=== PATIENT | female | born 1945 | race Caucasian/White ===

== ENCOUNTER 2022-12-05 12:24 | Inpatient (IN) | payer OTHER, MEDICAID ==
[~2022-12-05] VITALS: Ht 165.1 cm; Wt 80.7 kg
[2022-12-05] MEDS: METOPROLOL SUCCINATE 50 MG TAB.SR.24H (TOPROL XL) PO SCH (09:00)
[~2022-12-05 12:24] MED LIST: LOSARTAN POTASSIUM 50 MG TABLET (COZAAR) PO SCH
[2022-12-05 12:30] VITALS: BP_SYST 177; PULSE 100; RESP 16; TEMP 97.8; O2SAT 98
[2022-12-05] MEDS ORDERED: MORPHINE 4 MG INJ. 4 MG/ML VIAL IVP ONE ×2 (13:00→16:15)
[2022-12-05 13:54] LABS: BASOPHILS % (AUTO) 0.4 % (0.0-2.0); EOSINOPHILS # (AUTO) 0.1 K/uL (0.0-0.4); EOSINOPHILS % (AUTO) 1.2 % (0.0-4.0); HEMATOCRIT 39.7 % (36-48); HEMOGLOBIN 13.4 g/dL (12.0-16.0); LYMPHOCYTES # (AUTO) 1.6 K/uL (1.0-5.5); LYMPHOCYTES % (AUTO) 27.6 % (20.5-51.5); MEAN CORPUSCULAR HEMOGLOBIN 32 pg (27-31); MEAN CORPUSCULAR HGB CONC 34 % (32-36); MEAN CORPUSCULAR VOLUME 95 fL (79.0-98.0); MONOCYTES # (AUTO) 0.5 K/uL (0.0-1.0); NEUTROPHILS # (AUTO) 3.7 K/uL (1.8-7.7); NEUTROPHILS % (AUTO) 62.8 % (40.0-70.0); PLATELET COUNT (AUTO) 175 K/uL (130-430); RED CELL DISTRIBUTION WIDTH 14.7 % (9.0-15.0); WHITE BLOOD COUNT (AUTO) 5.8 K/uL (4.8-10.8)
[2022-12-05 13:58] LABS: ANION GAP 9 (5-15); CALCIUM 8.9 mg/dL (8.4-11.0); CHLORIDE 104 mmol/L (98-107); CREATININE 0.95 mg/dL (0.55-1.30); GLUCOSE 103 mg/dL (70-99); UREA NITROGEN, BLOOD 12 mg/dL (8-21)
[2022-12-05 14:01] LABS: INR 1.1 (0.8-1.2)
[2022-12-05 14:04] LABS: ALANINE AMINOTRANSFERASE 16 U/L (12-78); ALBUMIN 3.5 g/dL (3.4-4.8); ASPARTATE AMINOTRANSFERASE 18 U/L (10-37); TOTAL BILIRUBIN 0.5 mg/dL (0.0-1.0)
[2022-12-05] MEDS ORDERED: ONDANSETRON HCL 4 MG/2 ML VIAL IVP PRN (14:45)
[2022-12-05] MEDS ORDERED: ACETAMINOPHEN 325 MG TABLET PO PRN ×2 (14:45→15:15)
[2022-12-05] MEDS ORDERED: hydrALAZINE HCL 20 MG/ML VIAL IVP PRN (14:45)
[2022-12-05] MEDS: NACL 0.9% 1,000 ML IV SCH (15:36)
[2022-12-05] MEDS ORDERED: OLME20TA23 PO (17:15)
[2022-12-05] MEDS ORDERED: TELM80TA8 PO (17:15)
[2022-12-05] MEDS ORDERED: METO-542 PO (17:15)
[2022-12-05 18:22] VITALS: BP_SYST 180; PULSE 85; RESP 12; TEMP 97.7
[2022-12-05] MEDS: MORPHINE 4 MG INJ. 4 MG/ML VIAL IVP PRN (18:24)
[2022-12-05 18:43] VITALS: O2SAT 97
[2022-12-05 19:00] VITALS: BP_SYST 134; PULSE 86; RESP 18; TEMP 97.7; O2SAT 98
[2022-12-05] MEDS ORDERED: LORazepam 2 MG/ML VIAL IM PRN (19:45)
[2022-12-05] MEDS ORDERED: LORazepam 2 MG/ML VIAL IVP PRN (20:15)
[2022-12-06 00:10] VITALS: BP_SYST 165; PULSE 98; RESP 21; TEMP 98.4; O2SAT 100
[2022-12-06] MEDS: NACL 0.9% 1,000 ML IV SCH ×3 (00:45→21:09)
[2022-12-06 08:00] VITALS: O2SAT 98
[2022-12-06 08:13] LABS: BASOPHILS % (AUTO) 0.5 % (0.0-2.0); EOSINOPHILS # (AUTO) 0.1 K/uL (0.0-0.4); EOSINOPHILS % (AUTO) 1.7 % (0.0-4.0); HEMATOCRIT 34.6 % (36-48); HEMOGLOBIN 11.5 g/dL (12.0-16.0); LYMPHOCYTES # (AUTO) 0.8 K/uL (1.0-5.5); LYMPHOCYTES % (AUTO) 15.4 % (20.5-51.5); MEAN CORPUSCULAR HEMOGLOBIN 31 pg (27-31); MEAN CORPUSCULAR HGB CONC 33 % (32-36); MEAN CORPUSCULAR VOLUME 95 fL (79.0-98.0); MONOCYTES # (AUTO) 0.4 K/uL (0.0-1.0); MONOCYTES % (AUTO) 7.9 % (1.7-9.3); NEUTROPHILS # (AUTO) 3.8 K/uL (1.8-7.7); NEUTROPHILS % (AUTO) 74.5 % (40.0-70.0); PLATELET COUNT (AUTO) 144 K/uL (130-430); RED BLOOD CELL COUNT(AUTO) 3.65 MIL/uL (4.2-6.2); RED CELL DISTRIBUTION WIDTH 14.3 % (9.0-15.0); WHITE BLOOD COUNT (AUTO) 5.1 K/uL (4.8-10.8)
[2022-12-06 08:43] LABS: ALANINE AMINOTRANSFERASE 15 U/L (12-78); ALBUMIN 2.6 g/dL (3.4-4.8); ANION GAP 7 (5-15); ASPARTATE AMINOTRANSFERASE 19 U/L (10-37); CALCIUM 7.8 mg/dL (8.4-11.0); CHLORIDE 107 mmol/L (98-107); GLUCOSE 102 mg/dL (70-99); PHOSPHORUS 3.2 mg/dL (2.7-4.5); TOTAL BILIRUBIN 0.6 mg/dL (0.0-1.0); UREA NITROGEN, BLOOD 9 mg/dL (8-21)
[2022-12-06] MEDS: METOPROLOL SUCCINATE 50 MG TAB.SR.24H (TOPROL XL) PO SCH (09:00)
[2022-12-06] MEDS: MORPHINE 4 MG INJ. 4 MG/ML VIAL IVP PRN (09:15)
[2022-12-06] MEDS ORDERED: METOCLOPRAMIDE HCL 10 MG/2 ML VIAL ONE (09:25)
[2022-12-06] MEDS ORDERED: BUPIVACAINE /PF 0.25% 30 ML VIAL INJ ONE (09:25)
[2022-12-06] MEDS ORDERED: ROCURONIUM BROMIDE 10 MG/ML (ZEMURON) ONE (09:25)
[2022-12-06] MEDS ORDERED: HYDROmorphone 2 MG/ML VIAL ONE (09:25)
[2022-12-06] MEDS ORDERED: PROPOFOL 200MG/ 20ML VIAL (DIPRIVAN) IV ONE (09:25)
[2022-12-06] MEDS ORDERED: NEOSTIGMINE METHYLSULFATE 1 MG/ML, 10 ML VIAL ONE (09:25)
[2022-12-06] MEDS ORDERED: LR 1,000 ML IV.SOLN IV ONE (09:25)
[2022-12-06] MEDS ORDERED: NS IRRIG SOLN 1000 ML IR ONE (09:25)
[2022-12-06] MEDS ORDERED: TRANEXAMIC ACID 1,000 MG/10 ML VIAL ONE (09:25)
[2022-12-06] MEDS ORDERED: SEVOFLURANE 15 MIN GAS INH ONE (09:25)
[2022-12-06] MEDS ORDERED: HYDROmorphone 1 MG/ML INJ. CARTRIDGE IVP PRN (11:00)
[2022-12-06] MEDS ORDERED: NALOXONE HCL 0.4 MG/ML AMP (NARCAN) IVP PRN ×2 (11:00→23:45)
[2022-12-06] MEDS ORDERED: ONDANSETRON HCL 4 MG/2 ML VIAL IVP PRN (11:00)
[2022-12-06] MEDS: HYDROmorphone 1 MG/ML INJ. CARTRIDGE ONE ×2 (11:43→11:50)
[2022-12-06] MEDS ORDERED: MIDAZOLAM HCL 2 MG/2 ML VIAL (VERSED) ONE (12:07)
[2022-12-06] MEDS ORDERED: MIDAZOLAM HCL 2 MG/2 ML VIAL (VERSED) IVP ONE (12:15)
[2022-12-06 13:00] VITALS: BP_SYST 133; PULSE 79; RESP 16; TEMP 97.2; O2SAT 100
[2022-12-06 16:46] LABS: BILIRUBIN,URINE NEGATIVE (NEGATIVE); CLARITY/URINE CLEAR (CLEAR); COLOR,URINE YELLOW (YELLOW); GLUCOSE,URINE NEGATIVE (NEGATIVE); KETONES,URINE NEGATIVE (NEGATIVE); LEUKOCYTE ESTERASE ,URINE NEGATIVE (NEGATIVE); NITRITE, URINE NEGATIVE (NEGATIVE); PH,URINE 5.5 (5.0-8.0); PROTEIN URINE NEGATIVE (NEGATIVE); UROBILINOGEN,URINE 0.2 (0.2-1.0)
[2022-12-06 17:15] LABS: BLOOD, URINE TRACE (NEGATIVE)
[2022-12-06 17:27] LABS: BACTERIA,URINE RARE /HPF (None Seen); MUCUS,URINE None Seen /LPF (None Seen); RBC,URINE 0-3 /HPF (0-3); WBC,URINE 0-3 /HPF (0-3)
[2022-12-06 20:00] VITALS: BP_SYST 151; PULSE 83; RESP 18; TEMP 98.1; O2SAT 97; O2SAT 99
[2022-12-06] MEDS: ceFAZolin SODIUM 2 GM in D5W 100 ML IV SCH (21:10)
[2022-12-06] MEDS ORDERED: MORPHINE 2 MG/ML INJ. SYRINGE IVP ONE (23:45)
[2022-12-06] MEDS ORDERED: HALOPERIDOL LACTATE 5 MG/ML VIAL IM ONE (23:45)
[2022-12-07] VITALS (9 sets, daily range): BP systolic 112–188; PULSE 52–88; RESP 16–18; TEMP 96.7–98.2; O2SAT 95–100
[2022-12-07] MEDS: ceFAZolin SODIUM 2 GM in D5W 100 ML IV SCH ×3 (06:00→20:55)
[2022-12-07] MEDS: NACL 0.9% 1,000 ML IV SCH ×2 (06:45→15:51)
[2022-12-07] MEDS: METOPROLOL SUCCINATE 50 MG TAB.SR.24H (TOPROL XL) PO SCH ×2 (08:38→09:00)
[2022-12-07] MEDS: HYDROcodone/ACETAMIN 5-325 MG TAB (NORCO/ VICODIN) PO PRN ×2 (08:39→17:36)
[2022-12-07] MEDS ORDERED: OLMESARTAN MEDOXOMIL 20 MG TABLET PO SCH (09:00)
[2022-12-07] MEDS ORDERED: HALOPERIDOL 1 MG TABLET (HALDOL) PO PRN (09:30)
[2022-12-07] MEDS: ASPIRIN 81 MG TAB.CHEW PO SCH ×2 (10:05→20:46)
[2022-12-07] MEDS: LOSARTAN POTASSIUM 50 MG TABLET (COZAAR) PO SCH (10:05)
[2022-12-07 11:41] LABS: EOSINOPHILS % (AUTO) 0.2 % (0.0-4.0); HEMATOCRIT 33.2 % (36-48); HEMOGLOBIN 11.1 g/dL (12.0-16.0); LYMPHOCYTES # (AUTO) 0.5 K/uL (1.0-5.5); LYMPHOCYTES % (AUTO) 6.3 % (20.5-51.5); MEAN CORPUSCULAR HEMOGLOBIN 32 pg (27-31); MEAN CORPUSCULAR HGB CONC 33 % (32-36); MEAN CORPUSCULAR VOLUME 95 fL (79.0-98.0); MONOCYTES # (AUTO) 0.4 K/uL (0.0-1.0); MONOCYTES % (AUTO) 5.8 % (1.7-9.3); NEUTROPHILS # (AUTO) 6.7 K/uL (1.8-7.7); NEUTROPHILS % (AUTO) 87.7 % (40.0-70.0); PLATELET COUNT (AUTO) 156 K/uL (130-430); RED BLOOD CELL COUNT(AUTO) 3.49 MIL/uL (4.2-6.2); WHITE BLOOD COUNT (AUTO) 7.6 K/uL (4.8-10.8)
[2022-12-07 11:56] LABS: ALANINE AMINOTRANSFERASE 12 U/L (12-78); ALBUMIN 2.4 g/dL (3.4-4.8); ANION GAP 5 (5-15); ASPARTATE AMINOTRANSFERASE 22 U/L (10-37); CHLORIDE 104 mmol/L (98-107); GLUCOSE 199 mg/dL (70-99); PHOSPHORUS 3.1 mg/dL (2.7-4.5); TOTAL BILIRUBIN 0.4 mg/dL (0.0-1.0); UREA NITROGEN, BLOOD 10 mg/dL (8-21)
[2022-12-07] MEDS ORDERED: amLODIPine BESYLATE 5 MG TABLET PO ONE (12:30)
[2022-12-07] MEDS: APIXABAN 2.5 MG TABLET PO SCH (20:48)
[2022-12-08 00:58] VITALS: BP_SYST 133; PULSE 71; RESP 16; TEMP 97.9; O2SAT 97
[2022-12-08] MEDS: NACL 0.9% 1,000 ML IV SCH ×3 (05:13→23:45)
[2022-12-08] MEDS: ceFAZolin SODIUM 2 GM in D5W 100 ML IV SCH (05:14)
[2022-12-08 05:37] LABS: BASOPHILS % (AUTO) 0.3 % (0.0-2.0); EOSINOPHILS # (AUTO) 0.1 K/uL (0.0-0.4); EOSINOPHILS % (AUTO) 1.7 % (0.0-4.0); HEMATOCRIT 30.8 % (36-48); HEMOGLOBIN 10.4 g/dL (12.0-16.0); LYMPHOCYTES # (AUTO) 0.9 K/uL (1.0-5.5); LYMPHOCYTES % (AUTO) 13.9 % (20.5-51.5); MEAN CORPUSCULAR HEMOGLOBIN 32 pg (27-31); MEAN CORPUSCULAR HGB CONC 34 % (32-36); MEAN CORPUSCULAR VOLUME 94 fL (79.0-98.0); MONOCYTES # (AUTO) 0.4 K/uL (0.0-1.0); MONOCYTES % (AUTO) 6.9 % (1.7-9.3); NEUTROPHILS # (AUTO) 4.9 K/uL (1.8-7.7); NEUTROPHILS % (AUTO) 77.2 % (40.0-70.0); PLATELET COUNT (AUTO) 139 K/uL (130-430); RED BLOOD CELL COUNT(AUTO) 3.27 MIL/uL (4.2-6.2); RED CELL DISTRIBUTION WIDTH 14.5 % (9.0-15.0); WHITE BLOOD COUNT (AUTO) 6.4 K/uL (4.8-10.8)
[2022-12-08 06:16] LABS: ALANINE AMINOTRANSFERASE 8 U/L (12-78); ALBUMIN 2.3 g/dL (3.4-4.8); ANION GAP 3 (5-15); ASPARTATE AMINOTRANSFERASE 20 U/L (10-37); CALCIUM 7.8 mg/dL (8.4-11.0); CHLORIDE 107 mmol/L (98-107); CREATININE 0.76 mg/dL (0.55-1.30); GLUCOSE 98 mg/dL (70-99); PHOSPHORUS 2.5 mg/dL (2.7-4.5); TOTAL BILIRUBIN 0.4 mg/dL (0.0-1.0); UREA NITROGEN, BLOOD 12 mg/dL (8-21)
[2022-12-08 08:30] VITALS: BP_SYST 131; PULSE 87; RESP 16; TEMP 97.8; O2SAT 97
[2022-12-08] MEDS: METOPROLOL SUCCINATE 50 MG TAB.SR.24H (TOPROL XL) PO SCH ×2 (09:00→10:14)
[2022-12-08] MEDS: APIXABAN 2.5 MG TABLET PO SCH ×2 (10:11→21:57)
[2022-12-08] MEDS: amLODIPine BESYLATE 5 MG TABLET PO SCH (10:15)
[2022-12-08] MEDS: ASPIRIN 81 MG TAB.CHEW PO SCH ×2 (10:16→21:57)
[2022-12-08] MEDS: LOSARTAN POTASSIUM 50 MG TABLET (COZAAR) PO SCH (10:17)
[2022-12-08 11:28] VITALS: BP_SYST 133; PULSE 74; RESP 16; TEMP 97.9; O2SAT 97
[2022-12-08] MEDS ORDERED: LOSARTAN POTASSIUM 50 MG TABLET (COZAAR) PO ONE (12:15)
[2022-12-08] MEDS: HYDROcodone/ACETAMIN 5-325 MG TAB (NORCO/ VICODIN) PO PRN (13:44)
[2022-12-08 14:10] VITALS: O2SAT 98
[2022-12-08 15:15] VITALS: BP_SYST 114; PULSE 68; RESP 16; TEMP 97.9; O2SAT 94
[2022-12-08 20:00] VITALS: BP_SYST 134; PULSE 74; RESP 17; TEMP 98.1; O2SAT 98
[2022-12-08] MEDS ORDERED: ATORVASTATIN 20 MG TABLET PO SCH (21:00)
[2022-12-09] VITALS (7 sets, daily range): BP systolic 126–157; PULSE 67–92; RESP 16–20; TEMP 96.9–98.3; O2SAT 95–98
[2022-12-09] MEDS: ASPIRIN 81 MG TAB.CHEW PO SCH (08:50)
[2022-12-09] MEDS: amLODIPine BESYLATE 5 MG TABLET PO SCH (08:51)
[2022-12-09] MEDS: LOSARTAN POTASSIUM 50 MG TABLET (COZAAR) PO SCH (08:51)
[2022-12-09] MEDS: METOPROLOL SUCCINATE 50 MG TAB.SR.24H (TOPROL XL) PO SCH (08:52)
[2022-12-09] MEDS: APIXABAN 2.5 MG TABLET PO SCH (08:52)
[2022-12-09] MEDS: NACL 0.9% 1,000 ML IV SCH (08:57)
[2022-12-09] MEDS ORDERED: LOSARTAN POTASSIUM 50 MG TABLET (COZAAR) PO SCH (09:00)
[2022-12-09] MEDS: HYDROcodone/ACETAMIN 5-325 MG TAB (NORCO/ VICODIN) PO PRN (09:16)
[2022-12-09] MEDS ORDERED: APIX2.5T PO (13:16)
[2022-12-09] MEDS ORDERED: traMADol HCL HCL 50 MG TABLET (ULTRAM) PO PRN (13:30)
== END 2022-12-09 15:55 | DRG 481 ==
LOC: SED 12:24 → SMU 14:33 → STU 12-06 23:25 → SMU 12-08 08:40
PROVIDERS: ADMIT Specialist; ATTEND Specialist
PROC: 0QS606Z Reposition Right Upper Femur with Intramedullary Internal Fixation Device, Open Approach (ICD-10-PCS; principal; 2022-12-06 09:34)
DX: S72.141A Displaced intertrochanteric fracture of right femur, initial encounter for closed fracture (principal); R65.10 Systemic inflammatory response syndrome (SIRS) of non-infectious origin without acute organ dysfunction; I10 Essential (primary) hypertension; W18.39XA Other fall on same level, initial encounter; R41.0 Disorientation, unspecified; Z79.899 Other long term (current) drug therapy; Y93.89 Activity, other specified; Y99.8 Other external cause status; Y92.009 Unspecified place in unspecified non-institutional (private) residence as the place of occurrence of the external cause
CPT/HCPCS: 36415; 71045; 73502; 73552; 73564; 76000; 80053; 81000; 82550; 83735; 84100; 84484; 85025; 85610-TC; 85730-TC; 87081; 93005; 93306; 96374; 96376; 97110-GP; 97163-GP; 97530-GP; 99285; C1713; C1769; G0378; J1170; J1630; J2270; J2704; J2710; J2765; J3465; J3490; J7030; J7060; J7120